=== PATIENT | male | born 1955 | race Caucasian/White ===

== ENCOUNTER 2021-11-21 17:59 | Emergency (ER) | payer MEDICARE, OTHER ==
[~2021-11-21] VITALS: Ht 165.1 cm; Wt 104.5 kg
[2021-11-21 18:03] VITALS: BP 173/102
[2021-11-21 18:16] LABS: GLUCOSE,POINT OF CARE 266 MG/DL (70-110)
== END 2021-11-21 21:18 | disposition left against medical advice (07) ==
LOC: EMS 17:59
DX: Z53.21 Procedure and treatment not carried out due to patient leaving prior to being seen by health care provider (principal)
CPT/HCPCS: 82962

== ENCOUNTER 2021-11-24 09:11 | Emergency (ER) | payer MEDICARE, OTHER ==
[~2021-11-24] VITALS: Ht 165.1 cm; Wt 100.0 kg
[2021-11-24] MEDS ORDERED: KETOROLAC TROMETHAMINE 30 MG/ML VIAL IM ONE (11:45)
[2021-11-24] MEDS ORDERED: METHOCARBAMOL 500 MG TABLET PO ONE (11:45)
[2021-11-24] MEDS ORDERED: GABAPENTIN 300 MG CAPSULE PO ONE (11:45)
[2021-11-24 12:09] VITALS: BP 168/92
[2021-11-24] MEDS ORDERED: NAPR-1025 PO (12:23)
[2021-11-24] MEDS ORDERED: METH-659 PO (12:23)
[2021-11-24] MEDS ORDERED: GABA-1181 PO (12:23)
== END 2021-11-24 12:53 | disposition home or self-care (01) ==
LOC: EMS 09:13
DX: S13.4XXA Sprain of ligaments of cervical spine, initial encounter (principal); I10 Essential (primary) hypertension; M54.10 Radiculopathy, site unspecified; V89.2XXA Person injured in unspecified motor-vehicle accident, traffic, initial encounter; Y93.89 Activity, other specified; Y92.89 Other specified places as the place of occurrence of the external cause; Y99.8 Other external cause status; Z98.84 Bariatric surgery status
CPT/HCPCS: 99283; 72040; 96372; J1885

== ENCOUNTER 2023-04-02 08:26 | Emergency (ER) | payer MEDICARE, OTHER ==
[~2023-04-02] VITALS: Ht 172.7 cm; Wt 104.5 kg
[~2023-04-02 08:26] MED LIST: GABA-1181 PO; METH-659 PO; NAPR-1025 PO
[2023-04-02] MEDS ORDERED: SODIUM CHLORIDE 0.9% 1,000 ML IV ONE (09:45)
[2023-04-02] MEDS ORDERED: KETOROLAC TROMETHAMINE 30 MG/ML VIAL IVP ONE (10:00)
[2023-04-02 10:19] LABS: EOSINOPHILS % (AUTO) 3.5 % (1.0-6.0); HEMATOCRIT 31.3 % (41-53); HEMOGLOBIN 10.3 g/dL (13.5-17.5); LYMPHOCYTES # (AUTO) 1.3 K/uL (1.0-4.8); LYMPHOCYTES % (AUTO) 23.4 % (22.0-44.0); MEAN CORPUSCULAR HEMOGLOBIN 33.1 pg (26.0-34.0); MEAN CORPUSCULAR VOLUME 100 fL (80-100); MONOCYTES # (AUTO) 0.5 K/uL (0.1-1.0); MONOCYTES % (AUTO) 8.4 % (2.0-9.0); NEUTROPHILS # (AUTO) 3.5 K/uL (1.8-7.7); NEUTROPHILS % (AUTO) 63.7 % (40.0-70.0); PLATELET COUNT (AUTO) 137 K/uL (150-450); RED BLOOD CELL COUNT(AUTO) 3.12 MIL/uL (4.50-5.90); RED CELL DISTRIBUTION WIDTH 12.8 % (11.5-14.5); WHITE BLOOD COUNT (AUTO) 5.5 K/uL (4.5-11.0)
[2023-04-02 10:22] LABS: CREATININE 2.38 mg/dL (0.60-1.30); POTASSIUM 5.3 mmol/L (3.5-5.1)
[2023-04-02 11:26] LABS: RBC MORPHOLOGY COMMENT ABNORMAL RBC MORPH
[2023-04-02 11:43] LABS: APPEARANCE,URINE CLEAR (CLEAR); BILIRUBIN,URINE NEGATIVE (NEGATIVE); COLOR,URINE LIGHT YELLOW (YELLOW); GLUCOSE, URINE (UA) >=1000 mg/dL (NEGATIVE); KETONES,URINE NEGATIVE (NEGATIVE); LEUKOCYTE ESTERASE ,URINE NEGATIVE (NEGATIVE); NITRATE,URINE NEGATIVE (NEGATIVE); OCCULT BLOOD,URINE SMALL (NEGATIVE); PH,URINE 5.5 (5.0-8.0); PROTEIN,URINE 100-200,SEE CONFIRM mg/dL (NEGATIVE); SPECIFIC GRAVITIY, URINE 1.011 (1.003-1.030); UROBILINOGEN,URINE <=1.0 mg/dL (<=1.0)
[2023-04-02 11:55] LABS: SULFOSALICYLIC ACID,URINE 2+ (Negative)
[2023-04-02 11:56] LABS: BACTERIA,URINE None Seen /HPF (None Seen); RBC,URINE 0-2 /HPF (0-2); SQUAMOUS EPITHELIAL CELL,UR Few /LPF (None Seen); WBC,URINE None Seen /HPF (0-5)
[2023-04-02 14:46] VITALS: BP 179/76; PULSE 59; RESP 18; TEMP 97.9
== END 2023-04-02 15:00 | disposition home or self-care (01) ==
LOC: EMS 08:26
DX: R10.9 Unspecified abdominal pain (principal); I10 Essential (primary) hypertension; Z98.890 Other specified postprocedural states
CPT/HCPCS: 99285; 96374; 76770; 71045; 96361; 80048; 81001; 85025; 36415; J1885; J7030; 81002